=== PATIENT | female | born 1930 | race Caucasian/White ===

== ENCOUNTER → 2019-10-25 | Outpatient (CLI) | payer OTHER ==
[2019-10-25] VITALS (9 sets, daily range): BP systolic 99–142; BP diastolic 40–74
[~2019-10-25] MED LIST: CALCIUM 1,0001 EACH; GLUCOPHAGE XR500 M1 PO; GLUCOSAMINE1000 MG PO; LIPITOR 20 MG T20 M1 PO; MICARDIS 80 MG80 MG PO; MYRBETRIQ50 MG PO; NIACIN500 MG; SUPER THERAVIT1 EACH PO; TIAZAC240 M1 PO; TOVIAZ8 MG; ZYRTEC10 MG PO
[2019-10-25 10:14] LABS: HEMATOCRIT 38.3 % (37.0-47.0); HEMOGLOBIN 13.4 gm/dL (12.0-15.0); MCH 31.4 pg (26.0-34.0); MCHC 34.9 g/dL (28.0-37.0); MCV 89.9 fL (80.0-100.0); MPV 7.7 fl. (7.2-11.1); RBC 4.26 mil/uL (4.20-5.00); RDW-CV 12.9 % (10.5-14.5)
[2019-10-25 10:20] LABS: APTT 24.8 Seconds (25.0-31.3); PROTIME 10.2 Seconds (9.20-11.50)
[2019-10-25 10:21] LABS: ANION GAP 7 mmol/L (7-16); BUN 14 mg/dL (7-18); CALCIUM 6.6 mg/dL (8.5-10.1); CHLORIDE 113 mmol/L (98-107); CO2 24 mmol/L (21-32); CREATININE 0.7 mg/dL (0.6-1.3); GLUCOSE 152 mg/dL (70-99); POTASSIUM 3.3 mmol/L (3.5-5.1); SODIUM 144 mmol/L (136-145)
[2019-10-25 10:25] LABS: ALBUMIN 2.6 g/dL (3.4-5.0); ALKALINE PHOSPHATASE 75 U/L (46-116); CHOLESTEROL 75 mg/dL (<200); HDL CHOLESTEROL 30 mg/dL (>40); LDL CHOLESTEROL 32 mg/dL (<100); SGOT 16 U/L (15-37); SGPT 25 U/L (30-65); TC:HDL 2.5 Ratio (Not establshd); TOTAL BILIRUBIN 0.3 mg/dL (<0.1-1.0); TOTAL PROTEIN 4.7 g/dL (6.4-8.2); TRIGLYCERIDE 69 mg/dL (<150); VLDL 14 mg/dL (<40)
[2019-10-25 10:27] LABS: SERUM ASSESSMENT Clear
--- NOTE | 2019-10-25 12:20 | CARD ---
[address] [address] CARDIAC CATH REPORT Name: FAYE ROSE [facility] [id number] Admission: 10/25/19 Attend Phys: Jesus Morris MD, Discharge: Date of : [birth year] Report #: [id number] THIS REPORT FOR: //name// cc: Mark Olea MD, Douglas L. MD ~ APPROVED REPORT Study performed: 10/25/2019 09:39:30 Patient Details Patient Status: Out-Patient Room #: The patient is a 89 year-old female Event Personnel Jesus Morris Society Editor, Norah English RN Cloth Boil Off Machine Operator, Nathen Vallejo RTR Joshua Vera Brad [employer] Monitor Procedures Performed Left Heart Cath w/or w/o Coronaries [id number] [facility] Indication Chest pain Risk Factors Hypercholesterolemia, Hypertension Procedure Narrative The patient was brought electively to the Cardiac Catheterization Laboratory and was prepped and draped in a sterile manner. The right femoral was infiltrated with 2% Lidocaine subcutaneous anesthesia. A [place] 6 FR sheath was inserted into the RFA. Coronary angiography was performed using coronary diagnostic catheters. The right coronary system was accessed and visualized with a JR4 catheter. The left coronary system was accessed and visualized with a JL4 catheter. The left ventricle was accessed and visualized with a Pig Tail catheter. Left ventricular/Aortic Valve gradient assessed via catheter pullback. Pre-demployment femoral angiogram was performed . Closure device was deployed with a Fr MynxGrip 6/7F. The patient tolerated the procedure well and there were no complications associated with the procedure. Intraoperative Conscious Sedation Sedation start time: 1047 Case end Time: 1108 Fentanyl 25 [place] [address] CARDIAC CATH REPORT Name: FAYE ROSE Rosie Room: [facility]#: [id number] Admission: 10/25/19 Attend Phys: Jesus Morris MD, Discharge: Date of : 03/09/[birth year] Report #: [id number] Fluoro Time: 3.1 minutes Dose: DAP 23207 cGycm2 444 mGy Contrast Type and Amount: Visipaque 110 ml Diagnostic Cath Left Main 0% narrowing LAD 30% mid LAD narrowing with 20% proximal first diagonal narrowing Circumflex Prominent though nondominant vessel with 30% mid vessel narrowing Right Coronary Large dominant vessel with 20% mid vessel narrowing Left Ventriculography The left ventricle is normal in size with normal contractility. The left ventricular ejection fraction is estimated to be 65%. Left ventricular wall motion abnormalities are not present. There is no mitral insufficiency. Hemodynamics The aortic pressure is 149/51 mmHg with a mean of 89 mmHg. The left ventricular pressure is 142/-3 mmHg with a mean of mmHg. The left ventricular end diastolic pressure is 15 mmHg. There was no gradient across the aortic valve upon pullback. Conclusion 1. Mild coronary artery disease characterized by the following: A 30% mid LAD narrowing with 20% proximal first diagonal narrowing B 30% narrowing of the midportion of the nondominant circumflex C large dominant right coronary artery with 20% mid vessel narrowing 2. Normal left ventricular systolic function, estimated ejection fraction being 65% 3. Mild systemic systolic hypertension with mild elevation of left ventricular end-diastolic pressure at rest Recommendations Cardiac [place] [address] CARDIAC CATH REPORT Name: ROSEFAYE Rosie Room: [facility]#: [id number] Admission: 10/25/19 Attend Phys: Jesus Morris MD, Discharge: Date of : 03/09[birth year] Report #: [id number] Diagnostic Cath Approved by: Jesus Morris MD Date/Time: 10/25/2019 12:18:16 <ELECTRONICALLY SIGNED> By: Jesus Morris MD, FAC 10/25/19 1220 122 1220Jesus Morris MD, FAC /INF
--- NOTE | 2019-10-26 16:19 | EKG ---
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: : 1930 Requested By: Jesus Morris Order Number: [id number] Jyoti MD: Jesus Morris Measurements Intervals [place] Rate: 73 P: 53 VT: 170 QRS: -31 QRSD: 94 T: 67 QT: 383 QTc: 422 Interpretive Statements Sinus rhythm Left axis deviation Low voltage, precordial leads RSR' in V1 or V2, right VCD No previous ECG available for comparison Electronically Signed On 10-26-2019 16:19:00 CDT by Jesus Morris [email or web address] <ELECTRONICALLY SIGNED> By: Jesus Morris MD, [facility] 10/26/19 1619 1021 1021 Jesus Morris MD, [facility] /EPI
== END ==
LOC: M.CL 09:15
PROVIDERS: ATTEND Internal Medicine
DX: R07.9 Chest pain, unspecified (principal); I10 Essential (primary) hypertension; E78.2 Mixed hyperlipidemia; E11.9 Type 2 diabetes mellitus without complications; Z90.49 Acquired absence of other specified parts of digestive tract; Z91.040 Latex allergy status; Z98.890 Other specified postprocedural states; Z79.899 Other long term (current) drug therapy; Z79.84 Long term (current) use of oral hypoglycemic drugs